=== PATIENT | female | born 2000 | race African-American/Black ===

== ENCOUNTER 2022-03-28 14:16 | Observation (INO) | payer BC, OTHER ==
[2022-03-28 14:54] VITALS: BMI 36.7
[2022-03-28] MEDS ORDERED: hydrALAZINE 20 MG/ML VIAL SLOW IVP PRN (15:19)
[2022-03-28 17:54] LABS: #Monocytes 0.5 10x3/uL (0.0-1.1); %Basophils 0.1 % (0.0-2.0); %Eosinophils 0.5 % (0.0-6.0); %Lymphocytes 31.1 % (18.0-47.0); %Monocytes 6.5 % (0.0-10.0); %Neutrophils 61.3 % (40.0-75.0); Hemoglobin 10.7 g/dL (12.0-15.5); Mean Corpuscular HGB CONC 33.6 g/dL (32.0-36.0); Mean Corpuscular Hemoglobin 27.2 pg (27.0-33.0); Mean Corpuscular Volume 80.9 fl (81.6-98.3); Mean Platelet Volume 9.4 fl (7.4-10.4); Platelet Count 251 10x3/uL (150-450); RBC Distribution Width 13.2 % (11.5-14.5); Red Blood Cell (RBC) Count 3.93 10x6/uL (3.90-5.03); White Blood Cell (WBC) Count 8.2 10x3/uL (3.5-10.5)
== END 2022-03-28 20:33 | disposition left against medical advice (07) ==
LOC: CSHLD/OP 14:16 → CSHLD 19:23
PROVIDERS: ADMIT Obstetrics & Gynecology; ATTEND Obstetrics & Gynecology
DX: Z04.3 Encounter for examination and observation following other accident (principal); Z3A.28 28 weeks gestation of pregnancy; Z53.29 Procedure and treatment not carried out because of patient's decision for other reasons; W50.0XXA Accidental hit or strike by another person, initial encounter
CPT/HCPCS: 36415; 76815; 85025; 86850; 86900; 86901; 99282

== ENCOUNTER 2022-05-06 09:05 | Day surgery (SDC) | payer BC, OTHER ==
[2022-05-06] MEDS ORDERED: hydrALAZINE 20 MG/ML VIAL SLOW IVP PRN (09:43)
[2022-05-06] MEDS: Lactated Ringer's 1,000 ML IV SCH ×2 (09:56→10:36)
[2022-05-06] MEDS ORDERED: Promethazine HCl 25 MG in Sodium Chloride 0.9% 50 ML IVPB PRN (10:00)
[2022-05-06 10:21] LABS: #Eosinphils 0.1 10x3/uL (0.0-0.5); #Monocytes 0.6 10x3/uL (0.0-1.1); #Neutrophils 4.3 10x3/uL (1.5-8.4); %Basophils 0.3 % (0.0-2.0); %Eosinophils 1.1 % (0.0-6.0); %Lymphocytes 35.4 % (18.0-47.0); %Monocytes 8.1 % (0.0-10.0); %Neutrophils 53.8 % (40.0-75.0); Hemoglobin 11.3 g/dL (12.0-15.5); Mean Corpuscular HGB CONC 32.9 g/dL (32.0-36.0); Mean Corpuscular Volume 81.9 fl (81.6-98.3); Mean Platelet Volume 9.5 fl (7.4-10.4); Platelet Count 257 10x3/uL (150-450); RBC Distribution Width 13.4 % (11.5-14.5); Red Blood Cell (RBC) Count 4.19 10x6/uL (3.90-5.03); White Blood Cell (WBC) Count 7.9 10x3/uL (3.5-10.5)
[2022-05-06 10:37] LABS: ALT (SGPT) 9 U/L (8-55); AST (SGOT) 13 U/L (5-34); Albumin 3.8 g/dL (3.5-5.0); Alkaline Phosphatase 74 U/L (40-110); Anion Gap 16 mmol/L (10-20); BUN (Urea Nitrogen) 7 mg/dL (7.0-18.7); Bilirubin, Total 0.4 mg/dL (0.2-1.2); Calc. Creatinine Clearance 213 mL/min (70-130); Calcium 9.4 mg/dL (7.8-10.44); Carbon Dioxide 21 mmol/L (22-29); Chloride 106 mmol/L (98-107); Estimated GFR 126; Globulin 3.2 g/dL (2.4-3.5); Glucose 84 mg/dL (70-105); Lipase 16 U/L (8-78); Potassium 3.9 mmol/L (3.5-5.1); Sodium 139 mmol/L (136-145)
[2022-05-06 10:45] LABS: SARS-CoV-2 NAA Rapid Test Not Detected (NotDetected)
[2022-05-06] MEDS ORDERED: Lidocaine 2% Viscous Solution 10 ML, Aluminum & Magnesium Hydroxide 30 ML SSW SCH (10:45)
[2022-05-06 11:59] LABS: INR-International Normal Ratio 0.9; PTT 29.3 sec (22.0-33.0)
[2022-05-06 15:11] LABS: PT - Undiluted 13.2 sec (12.0-14.7); PTT - Undiluted 39.3 sec (22.9-36.1)
[2022-05-06 17:21] LABS: PT 1:1 37C-90 min. Incubation 13.6 sec (12.0-14.7); PTT 1:1 Mix 32.8 sec (22.9-36.1)
== END 2022-05-06 14:15 | disposition home health service (06) ==
LOC: CSHLD/OP 09:05
PROVIDERS: ATTEND Obstetrics & Gynecology
DX: O26.893 Other specified pregnancy related conditions, third trimester (principal); R10.13 Epigastric pain; O21.2 Late vomiting of pregnancy; Z3A.33 33 weeks gestation of pregnancy; Z20.822 Contact with and (suspected) exposure to COVID-19
CPT/HCPCS: 36415; 76705; 80053; 83690; 85025; 85384; 85610; 85611; 85730; 85732; J2550; U0002

== ENCOUNTER 2022-06-04 12:28 | Day surgery (SDC) | payer BC, OTHER ==
[2022-06-04 12:44] VITALS: BMI 39.4
[2022-06-04] MEDS ORDERED: hydrALAZINE 20 MG/ML VIAL SLOW IVP PRN (13:36)
== END 2022-06-04 13:40 | disposition home or self-care (01) ==
LOC: CSHLD/OP 12:28
PROVIDERS: ATTEND Obstetrics & Gynecology
DX: O26.893 Other specified pregnancy related conditions, third trimester (principal); R10.30 Lower abdominal pain, unspecified; Z3A.37 37 weeks gestation of pregnancy
CPT/HCPCS: 99282

== ENCOUNTER 2022-06-13 21:35 | Day surgery (SDC) | payer BC, OTHER ==
[2022-06-13 22:02] VITALS: BMI 39.4
[2022-06-13] MEDS ORDERED: hydrALAZINE 20 MG/ML VIAL SLOW IVP PRN (23:40)
[2022-06-13 23:53] LABS: Fetal Membranes Rupture No Membranes Rupture (No Rupture)
== END 2022-06-14 00:34 | disposition home or self-care (01) ==
LOC: CSHLD/OP 21:35
PROVIDERS: ATTEND Obstetrics & Gynecology
DX: O47.1 False labor at or after 37 completed weeks of gestation (principal); Z3A.39 39 weeks gestation of pregnancy; O99.810 Abnormal glucose complicating pregnancy; Z79.899 Other long term (current) drug therapy
CPT/HCPCS: 84112; 99283

== ENCOUNTER 2022-06-17 10:28 | Day surgery (SDC) | payer BC, OTHER ==
[2022-06-17 11:06] VITALS: BMI 39.4
[2022-06-17] MEDS ORDERED: hydrALAZINE 20 MG/ML VIAL SLOW IVP PRN (12:06)
[2022-06-17] MEDS ORDERED: hydrOXYzine Pamoate 25 mg Capsule PO SCH (13:00)
== END 2022-06-17 12:24 | disposition home health service (06) ==
LOC: CSHLD/OP 10:28
PROVIDERS: ATTEND Obstetrics & Gynecology
DX: O47.1 False labor at or after 37 completed weeks of gestation (principal); Z3A.39 39 weeks gestation of pregnancy
CPT/HCPCS: 99283; Q0177